=== PATIENT | male | born 1965 | race Caucasian/White ===

== ENCOUNTER 2019-06-15 11:58 | Emergency (ER) | payer MEDICAID, OTHER ==
[~2019-06-15] VITALS: Ht 165.1 cm; Wt 90.0 kg
[~2019-06-15 11:58] MED LIST: ALBU8.5H8 INH; FLUT12HF2 IH
[2019-06-15 12:06] VITALS: Ht 165.1 cm; Wt 90.0 kg
[2019-06-15 15:18] VITALS: BP 141/86; PULSE 78; RESP 16
== END 2019-06-15 15:30 | disposition home or self-care (01) ==
LOC: E/R 11:58
DX: J44.9 Chronic obstructive pulmonary disease, unspecified (principal); F17.210 Nicotine dependence, cigarettes, uncomplicated; Z76.0 Encounter for issue of repeat prescription
CPT/HCPCS: 71045; 80053; 83880; 85025; 93005; Z7502